=== PATIENT | female | born 1965 | race Caucasian/White ===

== ENCOUNTER 2017-03-15 22:24 | Emergency (ER) | payer OTHER ==
[2017-03-15 22:34] VITALS: BP 158/74; PULSE 79; TEMP 97.6; BMI 27.4
--- NOTE | 2017-03-15 23:39 | PDOC ---
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 She explains that she started shaking and felt her face flush. She thought that these symptoms were a reaction to her medications, so she drank a lot of water. Approximately 5 minutes after drinking the water, she threw up only liquid and no food. Since this episode, the symptoms have resolved but still feels a little shaky. She notes that this morning she took 1200 mg of motrin because she had a tendonitis flare up. She believes that this medication reacted with the lamictal and indocin, which she took her third dose of after dinner, around 6pm. She notes that this did not feel like a panic attack, but she did get upset and anxious because she was shaking. Denies chest pain, SOB, difficulty breathing. Denies visual changes. Denies lightheadedness, dizziness. Allergies: Penicillin <Nancy Boston - Last Filed: 03/16/17 00:31> - General Chief Complaint: Nausea/Vomiting Stated Complaint: ALLERGIC REACTION Time Seen by Provider: 03/15/17 23:21 Past History - Past Medical History Kidney Stones: Yes Other medical history: tendonitis - Psycho/Social/Smoking Cessation Hx Anxiety: Yes Suicidal Ideation: No Smoking History: Never smoked Have you smoked in the past 12 months: No Information on smoking cessation initiated: No Hx Alcohol Use: No Drug/Substance Use Hx: No Substance Use Type: None <Yohannes Lindsey - Last Filed: 03/15/17 23:53> <Nancy Boston - Last Filed: 03/16/17 00:31> - Past Medical History Allergies/Adverse Reactions: Allergies Allergy/AdvReac Type Severity Reaction Status Date / Time Penicillins Allergy Mild Hives Verified 03/15/17 22:35 Review of Systems - Review of Systems Constitutional: No: Chills, Fever HEENTM: Yes: Throat Swelling (resolved). No: Difficulty Swallowing Respiratory: No: Cough, Shortness of Breath Cardiac (ROS): No: Chest Pain, Edema, Lightheadedness, Palpitations, Syncope ABD/GI: Yes: Nausea, Vomiting. No: Constipated, Diarrhea Musculoskeletal: No: Back Pain, Muscle Pain Integumentary: Yes: Rash All Other Systems: Reviewed and Negative <Yohannes Lindsey - Last Filed: 03/15/17 23:53> *Physical Exam - Vital Signs Last Vital Signs Temp Pulse Resp BP Pulse Ox 97.6 F 79 17 158/74 100 03/15/17 22:30 03/15/17 22:30 03/15/17 22:30 03/15/17 22:30 03/15/17 22:30 <Yohannes Lindsey - Last Filed: 03/15/17 23:53> - Vital Signs Last Vital Signs Temp Pulse Resp BP Pulse Ox 97.6 F 79 17 158/74 100 03/15/17 22:30 03/15/17 22:30 03/15/17 22:30 03/15/17 22:30 03/15/17 22:30 - Physical Exam Comments: 03/16/17 00:31 GENERAL: The patient is awake, alert, and fully oriented, in no acute distress. HEAD: Normal with no signs of trauma. EYES: Pupils equal, round and reactive to light, extraocular movements intact, sclera anicteric, conjunctiva clear with no pallor. ENT: Ears normal, nares patent, oropharynx clear without exudates. Moist mucous membranes. NECK: Normal range of motion, supple without lymphadenopathy, JVD, or masses. LUNGS: Breath sounds equal, clear to auscultation bilaterally. No wheeze/ crackles. HEART: Regular rate and rhythm, normal S1 and S2 without murmur or rub. ABDOMEN: Soft/nontender/nondistended. BS wnl. No guarding or rebound. No palpable masses. No hepatosplenomegaly. EXTREMITIES: Normal range of motion, no edema. No clubbing or cyanosis. No cords, erythema, or tenderness. NEUROLOGICAL: Cranial nerves II through XII grossly intact. Normal speech, normal gait. PSYCH: Normal mood, normal affect. SKIN: Warm, Dry, normal turgor, no rashes or lesions noted. <Francisco Bostonssica - Last Filed: 03/16/17 00:31> Medical Decision Making - Medical Decision Making 03/15/17 23:54 A portion of this note was documented by scribe services under my direction. I have reviewed the details of the note, within reason, and agree with the documentation with the following case summary and management plan written by me. 51-year-old female with history of undetermined facial neuralgia on Neurontin/ Lamictal/Indocin for about 1.5 years, also with history of anxiety presents with episode around 10 PM of flushing sensation, nausea/vomiting 1, and transient rash. The symptoms occurred 4 hours after taking her nighttime Neurontin and Lamictal, also in the setting of taking 1200 mg of ibuprofen this morning in addition to her afternoon and evening doses of Indocin. The symptoms have essentially resolved except for a residual tremulousness, feels a bit anxious, otherwise denies any persistent throat swelling or tightness or difficulty breathing, no shortness of breath or wheezing, no abdominal pain. No history of similar reactions, last panic attack was probably about a year ago. Vital signs normal. Well-appearing, ambulating, speaking full sentences Airway is patent, no stridor S1-S2 with regular rate, lungs are clear Skin is clear without rash 51-year-old female with episode of flushing/nonbloody nonbilious vomiting 1. Currently all symptoms resolved, she is hemodynamically stable without evidence of ALLERGIC reaction or anaphylaxis or acute GI distress. Question whether this was a new ALLERGIC reaction with an episode of vomiting versus gastritis prompted by high doses of NSAIDs today. There may very well have been a complement of anxiety/panic attack as well. Again, she is well-appearing and her symptoms have resolved. This was all discussed with the patient, counseled to take Indocin only as prescribed and avoid additional NSAIDs, and to trial further Lamictal dose cautiously observing for repeat symptoms. Advised to get take Benadryl as needed Has Xanax at home as needed No indication for emergent workup or treatment at this time Understands return criteria <Yohannes Lindsey - Last Filed: 03/15/17 23:53> *DC/Admit/Observation/Transfer <Yohannes Lindsey - Last Filed: 03/15/17 23:53> - Attestations Scribe Attestion: 03/16/17 00:31 Documentation prepared by SANDRA Carcamo, acting as biomedical equipment technician for Yohannes Lindsey MD. <Nancy Boston - Last Filed: 03/16/17 00:31> Diagnosis at time of Disposition: Vomiting Qualifiers: Vomiting type: unspecified Vomiting Intractability: non-intractable Nausea presence: with nausea Qualified Code(s): R11.2 - Nausea with vomiting, unspecified - Discharge Dispostion Disposition: HOME Condition at time of disposition: Improved - Referrals Referrals: Park Lindsey [Primary Care Provider] - - Patient Instructions Printed Discharge Instructions: DI for Vomiting -- Adult, DI for Adverse Drug Reaction -- Allergic Additional Instructions: Activity as tolerated. Stay hydrated. As discussed, it seems the episode tonight was due to either: 1) allergic reaction: ? to lamictal. Allergic reactions can cause a flushing sensation and vomiting. Trial lamictal again tomorrow and closely observe any adverse symptoms. If you feel a rash/itching, take Benadryl 50mg immediately or come to the ER. 2) gastritis: high doses of anti-inflammatories (indocin and ibuprofen) can cause gastritis, which can lead to stomach upset and vomiting. Take only indocin as prescribed and avoid any additional anti-inflammatories like ibuprofen/motrin/advil/aleve. Continue your medications as previously prescribed by your physician. You can take benadryl or a xanax tonight when you get home, as needed. You should follow up with your primary doctor as soon as possible regarding today's emergency department visit. Return to the emergency department for any new or concerning symptoms, particularly persistent rash or vomiting, feeling light-headed or unwell, abdominal pain, bloody vomit or stool.
== END 2017-03-16 00:09 | disposition home or self-care (01) ==
LOC: SUPCPDRO 22:24 → JER 22:24
DX: R11.2 Nausea with vomiting, unspecified (principal); G58.8 Other specified mononeuropathies; F41.9 Anxiety disorder, unspecified
CPT/HCPCS: 99282-25